=== PATIENT | male | born 1955 | race Caucasian/White ===

== ENCOUNTER 2025-06-16 13:03 | Outpatient (CLI) | payer MEDICARE ==
[2025-06-16 14:14] LABS: Estimated GFR - POC 65.0
== END 2025-06-16 13:04 | disposition home or self-care (01) ==
LOC: CSHMRI 13:03
PROVIDERS: ATTEND Family Medicine
DX: R51.9 Headache, unspecified (principal); R93.0 Abnormal findings on diagnostic imaging of skull and head, not elsewhere classified
CPT/HCPCS: 36415; 70553; 76376; 82565